=== PATIENT | male | born 1950 | race Caucasian/White ===

== ENCOUNTER → 2020-11-08 | Outpatient (CLI) | payer MEDICARE, OTHER ==
--- NOTE | 2020-11-08 11:22 | RAD ---
EXAM: Cervical spine, 5 views. HISTORY: Pain. COMPARISON: None. FINDINGS: 5 views of the cervical spine are obtained. There is no listhesis. There is no fracture. Th ere is minimal multilevel endplate remodeling. There is multilevel facet arthropathy. The prevertebra l soft tissues are unremarkable.. IMPRESSION: [id number] multilevel degenerative change. No acute osseous finding. Electronically signed by: Flavia Mckeon MD (11/08/2020 11:20 AM) [id number]
== END ==
LOC: PMG 10:56
PROVIDERS: ATTEND Family Medicine
DX: M47.812 Spondylosis without myelopathy or radiculopathy, cervical region (principal)
CPT/HCPCS: 72040

== ENCOUNTER → 2020-12-19 | Outpatient (CLI) | payer MEDICARE, OTHER ==
[~2020-12-19] MED LIST: IOHEXOL 240 MG/ML 50ML VIAL. ONE; IOHEXOL 300 MG/ML 75 ML VIAL. IV ONE
[2020-12-19 09:06] LABS: CREATININE 0.9 mg/dL (0.7-1.3); GFR 83.7
--- NOTE | 2020-12-19 11:53 | RAD ---
EXAMINATION: CT abdomen and pelvis with IV contrast. INDICATION:70 years, Male, right upper quadrant abdominal pain.. TECHNIQUE: Axial CT images of the abdomen and pelvis were obtained. Coronal and sagittal reformatted performed. COMPARISON: None. Exposure: One or more of the following individualized dose reduction techniques were utilized for thi s examination: 1. Automated exposure control 2. Adjustment of the mA and/or kV according to patient size 3. Use of iterative reconstruction technique. FINDINGS: LOWER CHEST: 3 mm pulmonary nodule in the right middle lobe. Dependent bibasilar subsegmental atelectasis. Base. ABDOMEN/PELVIS: Normal morphology and size of the liver with homogeneous enhancement. No suspicious focal hepatic les ion. Calcified granulomas in the right hepatic lobe. Unremarkable gallbladder, biliary ducts. Calcifi ed granulomas in the spleen. There is a 4.7 x 3.1 cm unilocular cystic lesion abutting superior pancreatic tail. Additional, atrop hic changes of the pancreatic tail with a few ill-defined cystic lesions, the largest measures 1.8 cm . Diffuse pancreatic parenchymal atrophy. Normal caliber main pancreatic duct within the body and hea d. Punctate calcifications in the pancreatic head, consistent with sequelae of chronic pancreatitis. Indeterminate 1.3 cm right adrenal nodule. Left adrenal gland is unremarkable. No hydronephrosis in either kidney. Punctate (2 mm) nonobstructing right nephrolithiasis versus corti thad calcification the interpolar kidney. Simple left parapelvic renal cysts. Simple bilateral renal c ysts with the largest exophytic from the posterior right renal cortex measures 8.4 x 4.5 cm. No bowel obstruction or wall thickening. Colonic diverticulosis without colitis. Normal appendix. Unc omplicated duodenal diverticula. Partially thrombosed infrarenal abdominal aortic aneurysm measures 5 .7 x 5.0 cm over the length of 6.7 cm. Otherwise, abdominal aorta is patent without significant lumin al narrowing. Mesenteric arteries and portal vein are patent. No pneumoperitoneum or ascites. No lymp hadenopathy in the abdomen or pelvis by size criteria. Unremarkable urinary bladder and prostate. No suspicious pelvic masses. MUSCULOSKELETAL: No acute osseous process. Degenerative changes in the spine. IMPRESSION: 1. No acute abnormality in the abdomen and pelvis. 2. Sequelae of chronic pancreatitis with a few cystic lesions in the pancreatic tail measuring up to 4.7 cm. Findings suggesting of pseudocyst and/or sidebranch intraductal papillary mucinous neoplasms. Recommend further evaluation with MRI/MRCP abdomen. 3. Indeterminate 1.3 cm right adrenal nodule. This can be further evaluated by the recommended MRI. 4. Partially thrombosed infrarenal abdominal aortic aneurysm measures up to 5.7 cm in diameter. Recom mend vascular consultation. 5. Other chronic/incidental findings, as described above. Electronically signed by: Yesenia Michele MD (12/19/2020 11:50 AM) [id number]
== END ==
LOC: CT 08:31
PROVIDERS: ATTEND Internal Medicine Gastroenterology
DX: I71.4 Abdominal aortic aneurysm, without rupture (principal); K57.30 Diverticulosis of large intestine without perforation or abscess without bleeding; N28.1 Cyst of kidney, acquired; N26.1 Atrophy of kidney (terminal); K57.10 Diverticulosis of small intestine without perforation or abscess without bleeding
CPT/HCPCS: 36415; 74177; 82565; 84520; Q9967

== ENCOUNTER → 2021-01-11 | Outpatient (CLI) | payer MEDICARE, OTHER | LOC: LAB 09:43 | PROVIDERS: ATTEND Internal Medicine Gastroenterology | DX: R10.11 Right upper quadrant pain (principal) | CPT/HCPCS: 36415; 86301 ==

== ENCOUNTER 2021-08-07 22:34 | Emergency (ER) | payer MEDICARE, OTHER ==
[~2021-08-07] VITALS: Ht 185.4 cm; Wt 95.0 kg
--- NOTE | 2021-08-07 22:49 | PHYS DOC ---
Adult General HPI HPI Patient is a 70-year-old male with a past medical history significant for pancreatic cancer on chemotherapy who presents to the emergency department with a chief complaint of shakes, chills and fever at home of 104. States he had his chemotherapy treatment today at and left at about 3 PM. States that not long after began having his symptoms. Denies any recent traumas, travels, other illnesses, cold/flu/COVID symptoms, chest pain, shortness of breath, abdominal pain, nausea, vomiting, diarrhea. Denies any dysuria, hematuria or blood in the stool. Denies any known ill contacts. Review of Systems Review of Systems Review of systems otherwise unremarkable except noted in HPI Allergies Allergies Allergies Coded Allergies Type Severity Reaction Last Updated Verified No Known Drug Allergies 12/19/20 No Physical Exam Physical Exam Constitutional: Well developed, well nourished, no acute distress, appears he is not feeling well [] HENT: Normocephalic, atraumatic, bilateral external ears normal, oropharynx moist, no oral exudates, nose normal. [] Eyes: conjunctiva normal, no discharge. [] Neck: Normal range of motion, no tenderness, supple, no stridor. [] Cardiovascular: Sinus tachycardia Lungs & Thorax: Bilateral breath sounds clear to auscultation [] Abdomen: soft, no tenderness, no masses, no pulsatile masses. [] Skin: Warm, dry, no erythema, no rash, capillary refill proximately 6 seconds, appears flushed. [] Back: No tenderness, no CVA tenderness. [] Extremities: No tenderness, no cyanosis, no clubbing, ROM intact, no edema. [] Neurologic: Alert and oriented X 3, normal motor function, normal sensory function, able to sit, stand and walk without issue no focal deficits noted. [] Psychologic: Affect normal, judgement normal, mood normal. [] EKG EKG [] Radiology/Procedures Radiology/Procedures [] Heart Score C/O Chest Pain: No Risk Factors: Risk Factors: DM, Current or recent (<one month) smoker, HTN, HLP, family history of CAD, obesity. Risk Scores: Risk Factors: DM, Current or recent (<one month) smoker, HTN, HLP, family history of CAD, obesity. Course & Med Decision Making Course & Med Decision Making Patient is a 70-year-old male with pancreatic cancer on chemotherapy who presents with fever of 104 at home after chemotherapy today Vital signs notable for tachycardia, fever and soft blood pressures. Physical exam noted above. Patient placed on the monitor with IV access established and IV fluid begun. Given patient's immunocompromise status, blood cultures obtained and antibiotics given. Laboratory analysis not concerning. Urinalysis not concerning. Rapid Covid negative. Imaging including CTA of the chest to assess for pulmonary embolism showed no PE but did show some centrilobular pulmonary emphysema with some subsegmental atelectasis. CT of the abdomen pelvis with no acute findings. During patient stay, patient's heart rate increased to the 180s and patient became symptomatic with some diaphoresis and some shortness of breath. Cardiac pads placed. EKG with SVT and appeared narrow and regular. 12 of adenosine given with a good pause and after pause patient's heart rate in the 150s with new onset atrial fibrillation. Patient's heart rate still labile going from the 150s to the 170s and started on diltiazem. Given bolus and started on D5 an hour. Seem to control heart rate but blood pressure became soft with maps around 60 and systolic just under 90. Held diltiazem and started amiodarone and gave phenylephrine pushes for pressor support which increased maps to the 70s and had no change in heart rate. Patient's heart rate after diltiazem remained around 120. Discussed all findings with family and recommended admission to for continued evaluation and treatment of sepsis versus reaction to chemotherapy treatment yesterday. Family grateful, verbalized understanding and agreed with plan of transfer. Discussed patient with transfer team who accepted to their ICU. Dragon Disclaimer Dragon Disclaimer This electronic medical record was generated, in whole or in part, using a voice recognition dictation system. Departure Departure: Impression: Primary Impression: Pancreatic cancer Additional Impressions: Sepsis SVT (supraventricular tachycardia) New onset atrial fibrillation Disposition: 02 [facility]ORT TERM [facility]OS[facility] Condition: STABLE Referrals: MANDA STEELE MD (PCP) Problem Qualifiers MILE SCHILLING MD Aug 07, 2021 22:49
[2021-08-07] MEDS ORDERED: CEFEPIME HCL 2 GM VIAL IV ONE (23:27)
[2021-08-07] MEDS ORDERED: IV NORMAL SALINE 100ML 100 ML ONE (23:28)
[2021-08-07] MEDS ORDERED: ONDANSETRON PF 4 MG/2 ML VIAL. IVP ONE (23:30)
[2021-08-07] MEDS ORDERED: ACETAMINOPHEN 500 MG TABLET PO ONE (23:30)
[2021-08-07] MEDS ORDERED: CEFEPIME HCL 2 GM in IV NORMAL SALINE 100ML 100 ML IV ONE (23:30)
[2021-08-07] MEDS ORDERED: IV RINGERS SOLUTION,LACTATED 1,000 ML IV ONE (23:30)
[2021-08-07] MEDS ORDERED: PANTOPRAZOLE IV 40 MG VIAL. IVP ONE (23:30)
[2021-08-07] MEDS ORDERED: MORPHINE SULFATE 2 MG/ML DISP.SYRIN. IV ONE (23:30)
--- NOTE | 2021-08-07 23:42 | RAD ---
Exam: CT of chest, abdomen and pelvis without contrast INDICATION: Pancreatic cancer, fever chemotherapy TECHNIQUE: Sequential axial images through the chest, abdomen and pelvis obtained without IV contrast . Sagittal and coronal reformatted images were reconstructed from the axial data and reviewed. Exposure: One or more of the following in the visualized dose reduction techniques were utilized for this examination: 1. Automated exposure control 2. Adjustment of the MA and/or KV according to patient size 3. Use of iterative of reconstructive technique Comparisons: 12/19/2020 FINDINGS: Visualized portions of the thyroid are unremarkable. No enlarged mediastinal lymph nodes are identifi ed. Heart size is normal. No pericardial effusion. Thoracic aorta has normal course and caliber. Pulmonar y artery is not enlarged. Airways are patent. No consolidation or pneumothorax. No suspicious lung nodules. Mild centrilobular emphysematous change noted predominantly at the upper lungs. No pleural effusion or thickening. Evaluation of solid organs is limited secondary to noncontrast technique. Liver, gallbladder and adrenals are unremarkable. Postoperative changes of distal pancreatectomy sple nectomy. There is a cystic lesion at the pancreatectomy site which measures approximately 5.5 cm in t ransverse dimension. No perinephric inflammation or hydronephrosis. No renal or ureteral calculi are identified. Bladder is decompressed not well evaluated. Prostate is not enlarged. Moderate amount stool noted in the colon. Appendix is not identified. Small bowel is unremarkable. No free intra-abdominal air or fluid. No obstruction. Abdominal aorta has a normal course caliber. There is a aortobiiliac stent graft noted. No enlarged intra-abdominal lymph nodes are identified. No suspicious osseous lesions or acute fractures. 1. IMPRESSION: 2. Postoperative changes of distal pancreatectomy/splenectomy. 3. No sequela identified within the chest, abdomen or pelvis. Electronically signed by: Igor Rodas MD (08/07/2021 11:40 PM) [facility]
[2021-08-07 23:48] LABS: BASO % 1 % (0-3); EOS # 0.3 x10^3/uL (0.0-0.7); EOS % 5 % (0-3); HEMATOCRIT 41.2 % (39.0-53.0); HEMOGLOBIN 13.6 g/dL (13.0-17.5); LYMPH # 0.4 x10^3/uL (1.0-4.8); LYMPH % 6 % (24-48); MEAN CORPUSCULAR HEMOGLOBIN 31 pg (25-35); MEAN CORPUSCULAR HGB CONC 33 g/dL (31-37); MEAN CORPUSCULAR VOLUME 94 fL (79-100); MONO # 0.2 x10^3/uL (0.0-1.1); MONO % 3 % (0-9); NEUT # 6.2 x10^3uL (1.8-7.7); NEUT % 86 % (31-73); PLATELET COUNT 180 x10^3/uL (140-400); RED CELL DISTRIBUTION WIDTH 19.5 % (11.5-14.5); WHITE BLOOD COUNT 7.2 x10^3/uL (4.0-11.0)
[2021-08-07 23:53] LABS: CALCIUM 8.9 mg/dL (8.5-10.1); CREATININE 1.1 mg/dL (0.7-1.3); GFR 66.4; POTASSIUM 4.4 mmol/L (3.5-5.1)
[2021-08-08 00:08] LABS: ALBUMIN 3.3 g/dL (3.4-5.0); ALBUMIN/GLOBULIN RATIO 0.9 (1.0-1.7); MAGNESIUM 1.8 mg/dL (1.8-2.4); TOTAL BILIRUBIN 0.7 mg/dL (0.2-1.0); TOTAL PROTEIN 6.9 g/dL (6.4-8.2)
[2021-08-08] MEDS ORDERED: IV RINGERS SOLUTION,LACTATED 1,000 ML IV ONE ×2 (00:15→02:30)
[2021-08-08 01:31] LABS: BACTERIA,URINE 0 /HPF (0-FEW); CLARITY,URINE CLEAR; COLOR,URINE YELLOW; GLUCOSE,URINE NEG (NEG); NITRITE,URINE NEG (NEG); RBC,URINE OCC /HPF (0-2); SQUAMOUS EPITHELIAL CELL,UR OCC /LPF; UROBILINOGEN,URINE 0.2 mg/dL (0.2 mg/dL); WBC,URINE OCC /HPF (0-4)
[2021-08-08] MEDS ORDERED: IV NORMAL SALINE 100ML 0 ML ONE (02:10)
[2021-08-08] MEDS ORDERED: dilTIAZem VIAL 125 MG in IV NORMAL SALINE 100ML 100 ML IV PRN (02:15)
[2021-08-08] MEDS ORDERED: ADENOSINE 6 MG/2 ML VIAL IV ONE ×2 (02:15)
[2021-08-08] MEDS ORDERED: dilTIAZem 25 MG/5 ML VIAL IVP ONE (02:30)
[2021-08-08] MEDS ORDERED: CONTRAST GIVEN. MC PRN (03:00)
[2021-08-08] MEDS ORDERED: IOHEXOL 350 MG/ML 100 ML VIAL. IV ONE (03:00)
[2021-08-08] MEDS ORDERED: NORMAL SALINE IV PRN ×2 (03:30→04:15)
[2021-08-08] MEDS ORDERED: PHENYLEPHRINE IV PRN ×2 (03:30→04:15)
[2021-08-08] MEDS ORDERED: PHENYLEPHRINE 10 MG/ML VIAL. IV ONE ×3 (03:35→04:30)
[2021-08-08] MEDS ORDERED: IV NORMAL SALINE 100ML 100 ML ONE ×2 (03:36→03:41)
[2021-08-08] MEDS ORDERED: AMIODARONE 150 MG/3 ML VIAL IVP ONE (03:41)
[2021-08-08] MEDS ORDERED: IV DEXTROSE 5% 100 ML IV ONE (03:43)
--- NOTE | 2021-08-08 03:43 | RAD ---
PQRS Compliance Statement: One or more of the following individualized dose reduction techniques were utilized for this examinat ion: 1. Automated exposure control 2. Adjustment of the mA and/or kV according to patient size 3. Use of iterative reconstruction technique CTA CHEST_ABDOMEN_AND PELVIS 08/08/2021 2:42 AM INDICATION: Active cancer. New onset SVT/A. fib. COMPARISON: None available TECHNIQUE: Multiple axial CT images of the chest, abdomen and pelvis were obtained after the intraven ous administration of 100 mL Omnipaque 350. Coronal and sagittal reformats are provided. FINDINGS: The thyroid gland is normal in appearance. There are no pathologically enlarged axillary, mediastinal or hilar lymph nodes. The heart size is within normal limits. No significant pericardial effusion. T horacic aorta is normal in course and caliber. Right chest wall infusion port catheter is identified with the distal tip terminating at the cavoatrial junction. There is adequate opacification of the pulmonary arterial system. There there are no filling defects within the pulmonary arterial system to suggest acute or chronic pulmonary embolus. There are no suspicious solid noncalcified pulmonary nodules. 1.2 cm calcified granuloma identified w ithin the left lower lobe. Bandlike opacities at the lung bases favor subsegmental atelectasis or sca rring. There is moderate centrilobular pulmonary emphysema. There are no pulmonary infiltrates. There are no pleural effusions. No pulmonary vascular congestion or pneumothorax. No hypervascular hepatic lesions are identified. Spleen has been resected. There is a unilocular cyst ic lesion along the tail the pancreas measuring 5.7 x 4.7 cm. No pancreatic ductal dilatation. Gallbl adder and adrenal glands are normal in appearance. The kidneys enhance symmetrically. There is no suspicious renal mass. There is no hydronephrosis. The re are no suspected calculi within the kidneys, ureters or urinary bladder. Simple cyst in the superi or pole the right kidney measures 4.3 cm. There is an infrarenal abdominal aortic aneurysm status post aortobiiliac stent graft treatment. Marleen ve aorta measures 3.8 x 3.8 cm. There is patency of the bilateral iliac stent grafts. No pathological ly enlarged lymph nodes within the abdomen and pelvis. There is no free fluid or free intraperitoneal air. Appendix is not definitively visualized. Urinary bladder is within normal limits given degree of distention. No suspicious pelvic mass. No def inite osseous abnormality is identified. Heterogeneous marrow involving the sternum. Mild chronic hei ght loss at T11 and T12. IMPRESSION: 1. There is no evidence for acute or chronic pulmonary embolism. 2. Centrilobular pulmonary emphysema. Bibasilar subsegmental atelectasis or scarring. 3. Cystic lesion along the tail of the appendix measures 5.7 x 4.7 cm, stable. 4. Heterogeneous marrow edema involving the sternum, nonspecific. Correlate with any point tenderness in this region. If there is persistent clinical concern for osseous involvement of malignancy, furth er evaluation with bone scan could be of benefit. 5. Infrarenal abdominal aortic aneurysm measures 3.8 x 3.8 cm status post aortobiiliac stent graft tr eatment. No definite endoleak. 6. Mild chronic height loss at T11 and T12. Electronically signed by: Shonda Thomas MD (08/08/2021 3:40 AM) [facility]
[2021-08-08] MEDS ORDERED: AMIODARONE 450 MG in IV DEXTROSE 5% 250 ML IV ONE (03:45)
[2021-08-08] MEDS ORDERED: AMIODARONE 150 MG in IV DEXTROSE 5% 100 ML IVP ONE (04:00)
[2021-08-08] MEDS ORDERED: AMIODARONE 450 MG/9 ML VIAL IV ONE (04:08)
[2021-08-08] MEDS ORDERED: IV DEXTROSE 5% 250 ML IV ONE (04:09)
[2021-08-08 04:11] VITALS: BP 91/48
--- NOTE | 2021-08-08 21:00 | EKG ---
[address] [address] Test Date: 2021-08-08 Test Time: 02:01:38 Pat Name: RODRI MART Department: Room: Gender: M Account Advisor: : [id number] Requested By: MILE SCHILLING Order Number: [id number] Reading MD: Zeeshan Talley Measurements Intervals Stevens Rate: 165 P: [place]: QRS: 41 QRSD: 70 T: 34 QT: 308 QTc: 513 Interpretive Statements RAPID ATRIAL FIBRILLATION NON SPECIFIC ST-T WAVE CHANGES Electronically Signed On 08-09-2021 16:38:29 MATHEMATICAL STATISTICIAN by Zeeshan Talley
== END 2021-08-08 04:31 | disposition short-term general hospital (02) ==
LOC: ER 22:34
DX: A41.9 Sepsis, unspecified organism (principal); I47.1 Supraventricular tachycardia; I48.91 Unspecified atrial fibrillation; Z20.822 Contact with and (suspected) exposure to COVID-19; Z85.07 Personal history of malignant neoplasm of pancreas
CPT/HCPCS: 36415; 71250; 71275; 74174; 74175; 74176; 80053; 81001; 83605; 83735; 84484; 85025; 87040; 87426; 93005; 96361; 96365; 96366; 96367; 96374; 96375; 96376; 99285; C9113; C9803; J0153; J0282; J0692; J2270; J2405; J3490; J7120; Q9967; U0003